=== PATIENT | female | born 1965 ===

== ENCOUNTER → 2023-01-07 10:55 | Outpatient (CLI) | payer BC, SELFPAY ==
--- NOTE | ~2023-01-07 | MR_ITS ---
MRI of the cervical spine Clinical History: Neck pain Technique: Axial T2-weighted and gradient images, and sagittal T1-weighted, T2-weighted, and STIR gonzales ges were acquired. Findings: There is no fracture or subluxation of the cervical spine. Vertebral bodies maintain normal height and alignment. No bone marrow signal abnormality seen. At C2-C3, there is no significant disc bulge or herniation. No spinal canal stenosis or cord compress ion. There is mild left neural foraminal narrowing related to left facet arthropathy. Right neural fo ramen preserved. At C3-C4, there is disc osteophyte complex, most pronounced at the left paracentral to left foraminal region, resulting in mild canal stenosis and minimal flattening of the ventral cord. Left facet arth ropathy also contributes to left neural foraminal narrowing. Right neural foramen is probably preserv ed. At C4-C5, there is disc osteophyte complex, resulting in mild canal stenosis without lynn cord compr ession. There is bilateral facet arthropathy with associated bilateral neural foraminal narrowing, le ft worse than right. At C5-C6, there is mild disc osteophyte complex with bilateral facet arthropathy, right worse than le ft. There is bilateral neural foraminal narrowing, right worse than left. There is mild canal stenosi s without lynn cord compression. At C6-C7, there is disc osteophyte complex and facet arthropathy, resulting in mild canal stenosis an d possible minimal flattening the ventral cord. There is bilateral neural foraminal narrowing, left w orse than right. No abnormal signal seen in the spinal cord. Paravertebral soft tissues are unremarkable. Impression: Moderate degenerative spondylosis, as detailed above. There is multilevel spinal canal stenosis with minimal flattening of the ventral cord at C3-C4 and C6-C7. There is multilevel neural foraminal narro wing. Reviewed, dictated and finalized at location . Impression: Moderate degenerative spondylosis, as detailed above. There is multilevel spina l canal stenosis with minimal flattening of the ventral cord at C3-C4 and C6-C7 . There is multilevel neural foraminal narrowing.
== END ==
PROVIDERS: PCP Internal Medicine
DX: M47.812 Spondylosis without myelopathy or radiculopathy, cervical region (principal); M48.02 Spinal stenosis, cervical region
CPT/HCPCS: 72141